=== PATIENT | female | born 1965 | race Caucasian/White ===

== ENCOUNTER → 2016-08-15 | Outpatient (CLI) | payer OTHER ==
[~2016-08-15] MED LIST: ALBU18002 INH; ATOR10TA88 PO; CALC600T9 PO; CALCTAB5 PO; CLR10 PO; DYZ PO; FISHOIL PO; MULT-506 PO; PRLSR20 PO; SERT-234 PO; SERT100T PO; SIMV5TAB2 PO; SOLI5TAB2 PO
[2016-08-15 17:39] LABS: BASO ABS # 0.07 K/uL (0-0.2); COMPLETE YES; EOS % 1.5 %; HEMATOCRIT 44.7 % (37-47); IG% 0.1 %; LYMPH % 28.2 %; LYMPH ABS # 1.94 K/uL (1.2-3.4); MEAN CELL VOLUME 81.6 fL (80-100); MEAN CORPUSCULAR HEMOGLOBIN 27.4 pg (25-34); MEAN CORPUSCULAR HGB CONC 33.6 g/dl (32-36); MEAN PLATELET VOLUME 10.5 fL (7.4-10.4); NEUT % 63.2 %; PLATELET COUNT 303 K/uL (130-400); RED BLOOD COUNT 5.48 M/uL (4.2-5.4); WHITE BLOOD COUNT 6.87 K/uL (4.8-10.8)
[2016-08-15 17:57] LABS: ALT/SGPT 29 U/L (12-78); AST/SGOT 16 U/L (15-37); BLOOD UREA NITROGEN 14 mg/dl (7-18); BUN/CREATININE RATIO 18.6 (10-20); CALCIUM 8.8 mg/dl (8.5-10.1); CARBON DIOXIDE 28 mmol/L (21-32); CHLORIDE 100 mmol/L (98-107); CHOLESTEROL 264 mg/dl (0-200); CREATININE 0.76 mg/dl (0.60-1.20); GLUCOSE 89 mg/dl (70-99); SODIUM 137 mmol/L (136-145)
[2016-08-15 18:07] LABS: ALKALINE PHOSPHATASE 65 U/L (45-117); CHOLESTEROL/HDL RATIO 6.6; HDL CHOLESTEROL 40 mg/dl; LDL CHOLESTEROL CALCULATED 159 mg/dl; TRIGLYCERIDES 324 mg/dl (0-150); VERY LOW DENSITY LIPOPROT CALC 65 mg/dl
[2016-08-16 06:42] LABS: ESTIMATED AVERAGE GLUCOSE 120 mg/dl; HA1C FLAG Normal (Normal)
== END | disposition home or self-care (01) ==
LOC: C.LABPBG 12:54
PROVIDERS: ATTEND Internal Medicine Geriatric Medicine
DX: J45.909 Unspecified asthma, uncomplicated (principal); I10 Essential (primary) hypertension; E78.5 Hyperlipidemia, unspecified; G47.30 Sleep apnea, unspecified; Z83.3 Family history of diabetes mellitus

== ENCOUNTER → 2016-09-10 | Outpatient (CLI) | payer OTHER ==
--- NOTE | 2016-09-10 15:33 | MAMMOGRAPHY REPORT ---
BILATERAL DIGITAL SCREENING MAMMOGRAM TOMOSYNTHESIS WITH CAD: 09/10/2016 CLINICAL HISTORY: Routine screening examination. TECHNIQUE: Breast tomosynthesis in addition to standard 2D mammography was performed. Current study was also evaluated with a Computer Aided Detection (CAD) system. COMPARISON: Comparison is made to exams dated: 09/07/2015 mammogram, 09/08/2013 mammogram, 03/24/2014 u ltrasound, 09/22/2013 ultrasound, 03/11/2011 mammogram, and 03/19/2011 mammogram - [facility]. BREAST COMPOSITION: There are scattered areas of fibroglandular density in both breasts. FINDINGS: A 15 mm lobulated mass in the upper outer quadrant of the left breast contains an internal metallic biopsy marker, denoting the site of prior benign biopsy. There is a stable lobulated 12 m m mass in the lower inner left breast. Grouped calcifications in the anterior left breast have coar sened comparing to prior mammograms dating back to 2010, suggesting benignity. There are benign jose earing microcalcifications in the anterior right breast as well. No new suspicious mass, architectu ral distortion or cluster of microcalcifications is seen. IMPRESSION: ACR BI-RADS CATEGORY 1: NEGATIVE There is no mammographic evidence of malignancy. A 1 year screening mammogram is recommended. The p atient will receive written notification of the results. Approximately 10% of breast cancers are not detected with mammography. A negative mammographic repor t should not delay biopsy if a clinically suggestive mass is present. Stephanie Hill M.D. ay/:09/10/2016 15:28:24 Guest Relations Receptionist: Zulma STINSON(Tori)(M), [facility] letter sent: Normal 1/2 BI-RADS Code: ACR BI-RADS Category 1: Negative
== END | disposition home or self-care (01) ==
LOC: C.MAMM 08:30
PROVIDERS: ATTEND Internal Medicine Geriatric Medicine
DX: Z12.31 Encounter for screening mammogram for malignant neoplasm of breast (principal)

== ENCOUNTER → 2016-09-26 | Day surgery (SDC) | payer OTHER ==
[2016-09-18 14:07] VITALS: Ht 157.5 cm; Wt 125.0 kg
[~2016-09-26] VITALS: Ht 157.5 cm; Wt 125.0 kg
[~2016-09-26] MED LIST changes: -CALCTAB5 PO; +LIDOCAINE HCL 2% 2 ML VIAL (20MG/ML) ONE; +MIDAZOLAM HCL 1 MG/ML 2ML VIAL ONE; +PROPOFOL IV EMULSION 10 MG/ML 20 ML VIAL IV ONE; -SERT-234 PO; -SIMV5TAB2 PO; +SODIUM CHLORIDE 0.9% 500ML 500 ML IV ONE; -SOLI5TAB2 PO
--- NOTE | 2016-09-26 09:27 | Endo History and Physical ---
History & Physical Date of Service: Sep 26, 2016. Chief Complaint: Rectal Bleeding Referring Physician: Dr Webb History of Present Illness History of polyps, rectal bleeding Past Medical History Asthma, Anxiety, Reflux, High Cholesterol, Sleep Apnea, Hypertension, Depression Past Surgical History Hx Cardiac Surgery: No Hx Internal Defibrillator: No Hx Pacemaker: No Hx Abdominal Surgery: Yes (PARTIAL HYSTER) Hx of Implantable Prosthesis: No Hx Post-Op Nausea and Vomiting: No Hx Cancer Surgery: No Hx Thoracic Surgery: No Hx Orthopedic: No Hx Urinary Tract Surgery: No Family History Polyp Social History Smoking Status: Current Every Day Smoker Hx Substance Use: No Hx Alcohol Use: No Allergies Coded Allergies: Lisinopril (Verified Allergy, Unknown, COUGH, 09/26/16) Current Medications Reported Home Medications Medications Dose Route/Sig Max Daily Dose Days Date Category Proair Respiclick (Albuterol Sulfate) 108 Mcg/Act Aer 2 Puffs INH Q4H PRN 09/18/16 Reported Calcium + D (Calcium Carbonate-Vitamin D) 1 Tab Tab 2 Tabs PO QAM 09/18/16 Reported Lipitor (Atorvastatin Calcium) 10 Mg Tab 10 Mg PO HS 09/18/16 Reported Zoloft (Sertraline Hcl) 100 Mg Tab 150 Mg PO QAM 09/18/16 Reported Vidalia-3 (Fish Oil) Oil 1 Cap PO QAM 08/04/12 Reported Multivitamin (Multivitamins) Tab 1 Tab PO DAILY 09/24/07 Reported Claritin (Loratadine) 10 Mg Tab 10 Mg PO QAM 09/24/07 Reported Dyazide 37.5MG/25MG * (Triamterene/HCTZ) Cap 1 Cap PO QAM 09/24/07 Reported Prilosec (Omeprazole) 20 Mg Capcr 20 Mg PO BID 09/24/07 Reported Vital Signs Weight (Kilograms): 125 Height (Feet): 5 Height (Inches): 2 Date Time Temp Pulse Resp B/P Pulse Ox O2 Delivery O2 Flow Rate FiO2 09/26/16 09:05 36.9 71 16 130/69 94 Room Air Physical Exam General Appearance: WD/WN, no apparent distress Respiratory/Chest: Auscultation: breath sounds normal, no wheezing Cardiovascular: Heart Auscultation: RRR, no murmurs Abdomen: Inspection & Palpation: soft, no tenderness, guarding & rebound Assessment and Plan Colonoscopy today
--- NOTE | 2016-09-26 09:51 | Discharge Instructions ---
Endoscopy Patient Instructions Date / Procedure(s) Performed Sep 26, 2016. Colonoscopy Allergy Information Coded Allergies: Lisinopril (Verified Allergy, Unknown, COUGH, 09/26/16) Discharge Date / Findings Sep 26, 2016. Normal colonoscopy Medication Instructions Restart Stopped Medication(s): Restart all medications today. Provider Instructions Activity Restrictions - No exercising or heavy lifting for 24 hours. - Do not drink alcohol the day of the procedure. - Do not drive a car or operate machinery until the day after the procedure. - Do not make any important decisions or sign important papers in 24 hours after the procedure. Following Day: - Return to full activity which may include returning to work/school. Diet Start your diet with liquids and light foods (jello, soup, juice, toast). Then eat your usual diet if not nauseated. Treatment For Common After Affects For mild abdominal pain, bloating, or excessive gas: - Rest - Eat lightly - Lie on right side Follow-Up Information Follow-up with Dr Webb as scheduled Repeat colonoscopy in five years. Anesthesia Information What You Should Know You have had a procedure that required some medicine to reduce anxiety and discomfort. This treatment is called moderate sedation. After receiving the treatment, you may be sleepy, but you will be able to breathe on your own. The effects of the treatment may last for several hours. Follow these instructions along with Activity/Diet recommendations noted above: * Do NOT do anything where dizziness or clumsiness would be dangerous. * Rest quietly at home today, then you can be up and about tomorrow. * Have a responsible person stay with you the rest of today. * You may have had an I.V. today. If so, you may take the dressing off later today. Recommendations Call your doctor if: * Trouble breathing * Continuous vomiting for more than 24 hours * Temperature above 101 degrees * Severe abdominal pain or bloating * Pain not relieved by pain medicine ordered * There is increased drainage or redness from any incision * A large amount of rectal bleeding greater than 2-3 tablespoons. (If you had a polyp/s removed or have hemorrhoids, a small amount of blood - from the rectum is to be expected.) * You have any unanswered questions or concerns. IN THE EVENT OF A SERIOUS EMERGENCY, GO TO THE NEAREST EMERGENCY ROOM Your discharge instructions were prepared by provider Marcos Dias. Patient Instructions Signature Page Tobias Brizuela Patient (or Guardian) Signature/Date: I have read and understand the instructions given to me by my caregivers. Caregiver/RN/Doctor Signature/Date: The above-named patient and/or guardian has received patient instructions on this date. + Original Patient Signature Page (only) stays with chart. Please make copy for patient.
--- NOTE | 2016-09-26 10:04 | GI REPORT ---
Procedure Date: 09/26/2016 9:17 AM Procedure: Colonoscopy Indications: High risk colon cancer surveillance: Personal history of colonic polyps, Incidental - Rectal bleeding Medicines: Monitored Anesthesia Care Complications: No immediate complications. Estimated blood loss: None. Estimated Blood Loss: Estimated blood loss: none. Procedure: Pre-Anesthesia Assessment: - Prior to the procedure, a History and Physical was performed, and patient medications, allergies and sensitivities were reviewed. The patient's tolerance of previous anesthesia was reviewed. - ASA Grade Assessment: III - A patient with severe systemic disease. After I obtained informed consent, the scope was passed under direct vision. Throughout the procedure, the patient's blood pressure, pulse, and oxygen saturations were monitored continuously. The scope was introduced through the anus and advanced to the terminal ileum, with identification of the appendiceal orifice and IC valve. The colonoscopy was performed with ease. The patient tolerated the procedure well. The quality of the bowel preparation was excellent. The bowel preparation used was split dose MIralax. Findings: The colon (entire examined portion) appeared normal. Impression: - The entire examined colon is normal. - No specimens collected. Recommendation: - Repeat colonoscopy in 5 years for surveillance. - Discharge patient to home (with escort). Marcos Dias M.D. Marcos Dias MD 09/26/2016 10:04:18 AM This report has been signed electronically. Note Initiated On: 09/26/2016 9:17 AM I attest to the content of the Intraoperative Record and orders documented therein, exceptions below
[2016-09-26 10:20] VITALS: BP 112/60; PULSE 61; O2SAT 98
--- NOTE | 2016-09-26 10:27 | Anesthesiology Progress Note ---
Anesthesia Post Op Note Date & Time Sep 26, 2016 at 10:27 Vital Signs Pain Intensity: 0 Vital Signs Past 12 Hours Date Time Temp Pulse Resp B/P Pulse Ox O2 Delivery O2 Flow Rate FiO2 09/26/16 10:20 61 16 112/60 98 Room Air 09/26/16 10:06 69 16 116/56 98 Room Air 09/26/16 09:51 67 16 117/61 100 Room Air 09/26/16 09:05 36.9 71 16 130/69 94 Room Air Notes Mental Status: alert / awake / arousable, participated in evaluation Pt Amnestic to Procedure: Yes Nausea / Vomiting: adequately controlled Pain: adequately controlled Airway Patency, RR, SpO2: stable & adequate BP & HR: stable & adequate Hydration State: stable & adequate Anesthetic Complications: no major complications apparent
== END | disposition home or self-care (01) ==
LOC: C.GI 08:43
PROVIDERS: ATTEND Internal Medicine Gastroenterology
DX: Z12.11 Encounter for screening for malignant neoplasm of colon (principal); Z86.010 Personal history of colon polyps; K21.9 Gastro-esophageal reflux disease without esophagitis; J45.909 Unspecified asthma, uncomplicated; F41.9 Anxiety disorder, unspecified; I10 Essential (primary) hypertension; F32.9 Major depressive disorder, single episode, unspecified; E78.5 Hyperlipidemia, unspecified; G47.30 Sleep apnea, unspecified; Z90.710 Acquired absence of both cervix and uterus; Z88.8 Allergy status to other drugs, medicaments and biological substances

== ENCOUNTER → 2017-11-21 | Outpatient (CLI) | payer OTHER ==
[~2017-11-21] MED LIST changes: +ATOR10TA82 PO; -ATOR10TA88 PO; -LIDOCAINE HCL 2% 2 ML VIAL (20MG/ML) ONE; -MIDAZOLAM HCL 1 MG/ML 2ML VIAL ONE; -PROPOFOL IV EMULSION 10 MG/ML 20 ML VIAL IV ONE; -SODIUM CHLORIDE 0.9% 500ML 500 ML IV ONE
[2017-11-21 10:24] LABS: BASO % 0.8 %; BASO ABS # 0.04 K/uL (0-0.2); EOS % 3.1 %; EOS ABS # 0.16 K/uL (0-0.5); HEMATOCRIT 40.2 % (37-47); IG# 0.01 K/uL (0.00-0.02); LYMPH % 25.2 %; MEAN CELL VOLUME 83.8 fL (80-100); MEAN CORPUSCULAR HEMOGLOBIN 27.1 pg (25-34); MEAN CORPUSCULAR HGB CONC 32.3 g/dl (32-36); MONO ABS # 0.26 K/uL (0.11-0.59); NEUT % 65.7 %; NEUT ABS # 3.39 K/uL (1.4-6.5); PLATELET COUNT 241 K/uL (130-400); RED CELL DISTRIBUTION WIDTH CV 13.8 % (11.5-14.5); RED CELL DISTRIBUTION WIDTH SD 42.5 fL (36.4-46.3); WHITE BLOOD COUNT 5.16 K/uL (4.8-10.8)
[2017-11-21 10:50] LABS: ALBUMIN 3.6 gm/dl (3.4-5.0); ALT/SGPT 25 U/L (12-78); AST/SGOT 17 U/L (15-37); BLOOD UREA NITROGEN 13 mg/dl (7-18); CALCIUM 8.6 mg/dl (8.5-10.1); CARBON DIOXIDE 28 mmol/L (21-32); CREATININE 0.85 mg/dl (0.60-1.20); GLUCOSE 146 mg/dl (70-99); POTASSIUM 4.1 mmol/L (3.5-5.1); SODIUM 139 mmol/L (136-145)
[2017-11-21 11:01] LABS: ALKALINE PHOSPHATASE 72 U/L (45-117); CHOLESTEROL 124 mg/dl (0-200); LDL CHOLESTEROL CALCULATED 51 mg/dl; TOTAL PROTEIN 7.6 gm/dl (6.4-8.2)
== END | disposition home or self-care (01) ==
LOC: C.LAB1850 09:35
PROVIDERS: ATTEND Internal Medicine Geriatric Medicine
DX: I10 Essential (primary) hypertension (principal); E78.5 Hyperlipidemia, unspecified; Z72.0 Tobacco use; R31.9 Hematuria, unspecified

== ENCOUNTER → 2017-11-27 | Outpatient (CLI) | payer OTHER ==
[~2017-11-27] MED LIST changes: +OPTIRAY 320 IV PRN
--- NOTE | 2017-11-27 15:43 | DIAGNOSTIC IMAGING REPORT ---
ABD/PELVIS COMBO CLINICAL HISTORY: 52 years-old Female presenting with HEMATURIA. TECHNIQUE: Multidetector CT of the abdomen and pelvis was performed before and after the administration of intravenous contrast. IV contrast: 115 mL of Optiray 320. A dose lowering technique was used consistent with the principles of ALARA (as low as reasonably achievable). COMPARISON: None. CT DOSE (mGy.cm): The estimated cumulative dose is 2092.68 mGycm. FINDINGS: Transformation Specialist topogram: Unremarkable. Lung bases: Lungs and pleural spaces clear. Normal heart size. No pericardial or pleural effusion. Liver: Normal morphology. Density consistent with hepatic steatosis. No focal lesion. Patent hepatic vasculature. Biliary: No intrahepatic or extrahepatic biliary ductal dilatation. Normal gallbladder. Pancreas: Mild parenchymal atrophy. Spleen: Normal. Adrenal glands: Normal. Kidneys and ureters: No nephrolithiasis. Normal renal parenchyma. No hydronephrosis. Normal ureters. Bladder: Normal. Pelvic organs: Prostate and seminal vesicles normal. Bowel: Normal appendix. No bowel obstruction. Peritoneal cavity: No free fluid or intraperitoneal gas. Lymph nodes: No enlarged lymph nodes in the abdomen or pelvis. Vasculature: Aorta and IVC patent and normal in caliber. Abdominal wall: Diastasis of the rectus abdominis. Musculoskeletal: Degenerative changes of the spine. IMPRESSION: 1. No nephrolithiasis. Normal renal parenchyma. No hydronephrosis. Normal ureters. 2. Hepatic steatosis. Electronically signed by: Luis Nelson M.D. 11/27/2017 3:41 PM Dictated Date/Time: 11/27/2017 3:31 PM
== END | disposition home or self-care (01) ==
LOC: C.CTS 14:21
PROVIDERS: ATTEND Internal Medicine Geriatric Medicine
DX: R31.9 Hematuria, unspecified (principal); K76.0 Fatty (change of) liver, not elsewhere classified

== ENCOUNTER → 2017-12-03 | Outpatient (CLI) | payer OTHER ==
[~2017-12-03] MED LIST changes: -OPTIRAY 320 IV PRN
--- NOTE | 2017-12-03 21:59 | PULMONARY FUNCTION TEST ---
CLINICAL DATA: A 52-year-old female with a height of 62 inches and a weight of [address] Justin Vallejo for evaluation of chest pain and shortness of breath. Spirometry pre- and post-bronchodilator, lung volumes, and DLCO were performed. FINDINGS: Pre-bronchodilator spirometry demonstrates mild obstructive airways disease. FVC was 95% of predicted. FEV1 was 75% of predicted. [id number] was 36% predicted. There was very minimal improvement after inhaled bronchodilator. FVC improved 8% to 102% of predicted. FEV1 improved 9% to 82% of predicted. [id number] improved 3% to 37% of predicted. Lung volumes show a reduction in expiratory reserve volume due to obesity. DLCO was mildly reduced at 65% of predicted. IMPRESSION: 1. Mild obstructive airways disease with slight improvement after inhaled bronchodilator. 2. Reduction in expiratory reserve volume on lung volume testing due to obesity. 2. Mild reduction in diffusing capacity. MTDD
== END | disposition home or self-care (01) ==
LOC: C.RC 10:58
PROVIDERS: ATTEND Internal Medicine Geriatric Medicine
DX: R07.9 Chest pain, unspecified (principal)

== ENCOUNTER → 2018-03-03 | Outpatient (CLI) | payer OTHER | END | disposition home or self-care (01) | LOC: C.LABSPEC 10:36 | PROVIDERS: ATTEND Urology | DX: R31.29 Other microscopic hematuria (principal) ==

== ENCOUNTER → 2018-03-03 | Outpatient (CLI) | payer OTHER ==
--- NOTE | 2018-03-04 15:42 | MAMMOGRAPHY REPORT ---
BILATERAL DIGITAL SCREENING MAMMOGRAM TOMOSYNTHESIS WITH CAD: 03/03/2018 CLINICAL HISTORY: Routine screening. Patient has no complaints. TECHNIQUE: The study was acquired using full field digital technology and interpreted from soft copy. Breast tomosynthesis in addition to standard 2D mammography was performed. Current study was also ev aluated with a Computer Aided Detection (CAD) system. COMPARISON: Comparison is made to exams dated: 09/10/2016 mammogram, 09/07/2015 mammogram, 03/24/2014 ma mmogram, 09/22/2013 mammogram, 09/08/2013 mammogram, and 03/19/2011 mammogram - [facility]. BREAST COMPOSITION: There are scattered areas of fibroglandular density in both breasts. FINDINGS: No suspicious masses, calcifications, or areas of architectural distortion are noted in either breast . There has been no significant interval change compared to prior exams. Bilateral benign-appearing calcifications are not significantly changed. Lobulated mass with an associated biopsy clip in the l eft upper outer quadrant is stable. IMPRESSION: ACR BI-RADS CATEGORY 2: BENIGN There is no mammographic evidence of malignancy. A 1 year screening mammogram is recommended.( [id number]) The patient will receive written notification of the results. Some breast cancers are not detected with mammography. A negative mammographic report should not bill y biopsy if a clinically suggestive mass is present. Judy Morejon M.D. /:03/03/2018 16:33:28 Shoemaking Finisher: Valencia Ibrahim, RT(Tori)(M)(BD), [facility] letter sent: Normal 1/2 BI-RADS Code: ACR BI-RADS Category 2: Benign
== END | disposition home or self-care (01) ==
LOC: C.MAMM 14:56
PROVIDERS: ATTEND Internal Medicine Geriatric Medicine
DX: Z12.31 Encounter for screening mammogram for malignant neoplasm of breast (principal)